=== PATIENT | female | born 1995 | race Caucasian/White ===

== ENCOUNTER 2024-07-28 01:27 | Emergency (ER) | payer SELFPAY ==
[2024-07-28 01:44] VITALS: BP 133/84
--- NOTE | 2024-07-28 02:26 | ED.SKININJ ---
HPI-Injury
General
Chief Complaint: Skin Surface Trauma
Source: patient
Time Seen by Provider: 07/28/24 02:06
History of Present Illness-Injury
Initial Injury comments:
28-year-old [id number] female presents with laceration to left hand between thumb and index finger. She was using a pair of scissors to open up a package of baking soda and slipped and cut her hand. Last tetanus is up-to-date. No other
complaints at this time
Past History
Past History
ED Past Medical History: None
ED Past Surgical History: None
Social History
Tobacco: Non-smoker
Alcohol: None
Drug: None
Personal: Single
Living: with family
Employment: Student
Family History
Family History: Other (Noncontributory)
Phy Exam
Physical Exam
Physical Exam:
General: Well-appearing female no acute distress
Skin: 1 cm laceration webspace between thumb and index finger left hand superficial nature without nerve or tendon involvement
Musculoskeletal exam: Good range of motion all fingers left hand
Neurologic: Good sensation left index finger and for
Course
Vital Signs
Initial and Last Documented VS:
Initial Vital Signs
Temp Pulse Resp BP Pulse Ox
97.8 F 92 16 133/84 100
07/28/24 01:44 07/28/24 01:44 07/28/24 01:44 07/28/24 01:44 07/28/24 01:44
Last Documented Vital Signs
Temp Pulse Resp BP Pulse Ox
97.8 F 92 16 133/84 100
07/28/24 01:44 07/28/24 01:44 07/28/24 01:44 07/28/24 01:44 07/28/24 01:44
MDM/Problems Addressed
Differential Diagnosis Includes:
Wound irrigated with saline and dried held in approximation with skin adhesive benzoin and Steri-Strips. No indication for sutures. Wound care instructions were given stable for discharge
*Critical Care Note
Total Time (30-74mins, 75-104mins- exclusive of procedures): Not Applicable
ED Attending Note
-
Portions of this chart may have been created with voice recognition software.� Occasional wrong word or��sound alike� substitutions may have occurred due to the inherent limitations of voice recognition software.
Discharge Plan
Departure
Patient Disposition: Home (Routine Discharge)
Date of Disposition: 07/28/24
Time of Disposition: 02:27
Patient with high blood pressure during this ER visit?: No
Discharge Problem:
Laceration
Instructions: Laceration Repair With Glue (DC), Wound Care (DC)
Prescriptions:
No Action
vit-iron fum-folic ac 1 EACH tablet
1 ea PO DAILY
ibuprofen 600 MG tablet
600 mg PO Q4HPRN PRN (Reason: moderate pain/cramps) 0RF
Activity Restrictions/Additional Instructions:
Keep dry for 24 hours. The Steri-Strips will fall off on their own. The glue will dissolve on its own. Return if needed otherwise
Interventions
Interventions:
*Risk Screen - Suicide Last Done: 07/28/24 01:44
*General Assessment Last Done: 07/28/24 02:21
*Neglect/Abuse Screening Last Done: 07/28/24 01:44
*ED- Fall Risk Assessment Last Done: 07/28/24 02:21
*ED COVID-19 Vaccine History Last Done: 07/28/24 02:21
ED-Skin Assessment Last Done: 07/28/24 02:20
Discharge Date and Time
Print Language: BRITISH
[2024-07-28 02:37] VITALS: BP 123/77
[2024-07-28 02:38] VITALS: BP 123/77
== END 2024-07-28 02:39 | disposition home or self-care (01) ==
LOC: EMR 01:27
PROVIDERS: EMERGENCY PHYSICIAN Emergency Medicine; FAMILY PHYSICIAN Nurse Practitioner Family
DX: S61.412A Laceration without foreign body of left hand, initial encounter (principal); W27.2XXA Contact with scissors, initial encounter
CPT/HCPCS: 12001; 99282

== ENCOUNTER 2024-07-29 14:09 | Emergency (ER) | payer SELFPAY ==
[2024-07-29 14:13] VITALS: BP 146/84
--- NOTE | 2024-07-29 14:48 | EDRN ---
100 ml NSS irrigation.
--- NOTE | 2024-07-29 14:55 | ED.GENMED ---
History of Present Illness
General
Chief Complaint: Skin Problem
Source: patient and other (Friend)
Exam Limitations: none
Time Seen by Provider: 07/29/24 14:31
History of Present Illness
History of Present Illness:
This patient is a 28-year-old female who was here recently after suffering a laceration to her left hand with reported intermittent tingling in the hand and questionable redness or swelling to the area of the laceration. She denies fever, chills,
sweats, drainage, nausea, vomiting, weakness, or other complaints.
Past History
Past History
ED Past Medical History: None
ED Past Surgical History: None
Social History
Tobacco: Non-smoker
Alcohol: Occasional
Drug: None
Personal: Single
Living: with family
Employment: Student
Family History
Family History: Other (Noncontributory)
Phy Exam
Physical Exam
Physical Exam:
GENERAL: Alert , in no apparent distress
EYE: pupils equal and round
NECK: Supple, no significant adenopathy.
ENT: o/p clr, mmm.
CARDIAC: Regular rate and rhythm .
LUNGS: Clear breath sounds bilaterally, no acute respiratory distress, no wheezes/rales/rhonchi
ABDOMEN: Soft, without focal tenderness, no r/g, no cvat
NEUROLOGICAL: Alert and oriented, no focal neuro deficits
SKIN: Warm and dry, steri strips removed---linear laceration noted in area between thumb and first digit/index finger, clean, dry , no redness/warmth/drainage or other abl noted. FROM, no fb, motor intact
MUSCULOSKELETAL: No edema, well perfused.
PSYCH: Normal and appropriate interaction.
Course
Vital Signs
Initial and Last Documented VS:
Initial Vital Signs
Temp Pulse Resp BP Pulse Ox
98 F 76 16 146/84 100
07/29/24 14:13 07/29/24 14:13 07/29/24 14:13 07/29/24 14:13 07/29/24 14:13
Last Documented Vital Signs
Temp Pulse Resp BP Pulse Ox
98 F 75 18 121/81 95
07/29/24 14:13 07/29/24 15:16 07/29/24 15:16 07/29/24 15:16 07/29/24 15:16
*Critical Care Note
Total Time (30-74mins, 75-104mins- exclusive of procedures): Not Applicable
Update Note
Update Note:
Patient presents to the Emergency Department with ____numbness and swelling of laceration site
Number and Complexity of Problems Addressed at the Encounter
� Chronic conditions affecting care:
� Acute Exacerbation and/or Progression of Chronic Illness:
� Differential Diagnosis includes: But not limited to normal healing, infection, foreign body retention, etc. etc.
Amount and/or Complexity of Data to be Reviewed and Analyzed
� I performed an independent evaluation of and my interpretation is:
EKG:
CT:
Xrays:
Laboratory Studies:
Other:
� Review of other/old records reveals:
� Clinical information was obtained by an independent historian:
� Prescriptions/Medications Considered but not given:
� Further testing considered but not performed:
Risk of Complications and/or Morbidity or Mortality of Patient Management
� Social determinants of health affecting care:
� Discussion with other providers (PCP, Hospitalists, Consultants, etc):
� Escalation of care including admission/observation vs risk of discharge considered: Wound extremely well-appearing on exam, do not have clinical concerns for infection at this time. I do not appreciate redness warmth drainage
etc. However long discussion with patient regarding importance of close observation. We will irrigate wounds again here and I will reapply Steri-Strips.
ED Attending Note
-
Portions of this chart may have been created with voice recognition software.� Occasional wrong word or��sound alike� substitutions may have occurred due to the inherent limitations of voice recognition software.
Discharge Plan
Departure
Patient Disposition: Home (Routine Discharge)
Date of Disposition: 07/29/24
Time of Disposition: 14:58
Patient with high blood pressure during this ER visit?: Yes
Condition: Good
Discharge Problem:
Laceration
Instructions: Wound Care (DC), BLOOD PRESSURE
Prescriptions:
No Action
vit-iron fum-folic ac 1 EACH tablet
1 ea PO DAILY
ibuprofen 600 MG tablet
600 mg PO Q4HPRN PRN (Reason: moderate pain/cramps) 0RF
Referrals:
Jennifer Medrano CRNP [Family Provider] - Follow up in 2-3 days
Activity Restrictions/Additional Instructions:
PLEASE CONTINUE TO OBSERVE THE WOUND CAREFULLY FOR SIGNS OF INFECTION SUCH REDNESS, WARMTH, DRAINAGE, FEVER, INCREASING OR NEW PAIN, ETC. YOU SHOULD SEE YOUR PRIMARY CARE DOCTOR WITHIN THE NEXT 2 DAYS FOR A WOUND RECHECK TO CONFIRM THAT THE
WOUND IS HEALING WELL. PLEASE RETURN TO THE EMERGENCY DEPARTMENT WITH ANY PROGRESSIVE OR NEW CONCERNS.
Interventions
Interventions:
*Risk Screen - Suicide Last Done: 07/29/24 14:14
*Neglect/Abuse Screening Last Done: 07/29/24 14:14
*Nursing Disposition Last Done: 07/29/24 15:17
ED-Skin Assessment Last Done: 07/29/24 14:34
Discharge Date and Time
Discharge Date/Time: 07/29/24 15:17
Print Language: IRISH
[2024-07-29 15:16] VITALS: BP 121/81
== END 2024-07-29 15:17 | disposition home or self-care (01) ==
LOC: EMR 14:09
PROVIDERS: EMERGENCY PHYSICIAN Emergency Medicine; FAMILY PHYSICIAN Nurse Practitioner Family
DX: S61.412A Laceration without foreign body of left hand, initial encounter (principal); X58.XXXA Exposure to other specified factors, initial encounter; R03.0 Elevated blood-pressure reading, without diagnosis of hypertension
CPT/HCPCS: 99282